=== PATIENT | female | born 1975 | race African-American/Black ===

== ENCOUNTER 2017-07-29 17:26 | Emergency (ER) | payer SELFPAY ==
[2017-07-29 17:39] VITALS: BP 142/67; PULSE 74; RESP 18; TEMP 98; O2SAT 97
--- NOTE | 2017-07-29 18:02 | PD ---
HPI Chief Complaint: Bite or Sting Time Seen by Provider: 17:52 Travel History International Travel<30 days: No Contact w/Intl Traveler<30days: No Traveled to known affect area: No History of Present Illness HPI 42-year-old -Stateless female presents emergency department with multiple bedbug bites all over her body and neck which have occurred over the past week. Patient is here with severe pruritus. She denies fever, chills, or open wounds or draining areas. Patient has not taken any medication for it. She states "it is driving me crazy". She has no significant pain. She has no known drug allergies. [facility] Past Medical History LMP: 07/18/17 Social History Alcohol Use: Yes Tobacco Use: No Substance Use: No Allergies-Medications (Allergen,Severity, Reaction): Coded Allergies: No Known Allergies (Unverified , 07/29/17) Reported Meds & Prescriptions Reported Meds & Active Scripts Active No Active Prescriptions or Reported Medications Review of Systems Except as stated in HPI: all other systems reviewed are Neg General / Constitutional: No: Fever Eyes: No: Visual changes HENT: No: Headaches Cardiovascular: No: Chest Pain or Discomfort Respiratory: No: Shortness of Breath Gastrointestinal: No: Abdominal Pain Genitourinary: No: Dysuria Musculoskeletal: No: Pain Skin: Positive Itching, Positive Lesions, No Rash Neurologic: No: Weakness Psychiatric: No: Depression Endocrine: No: Polydipsia Hematologic/Lymphatic: No: Easy Bruising Physical Exam Narrative GENERAL: Patient is stable but uncomfortable SKIN: Warm and dry. Normal color. Normal turgor. Patient has over 100 obvious insect bites with local erythema and swelling. No signs of cellulitis or abscess are noted. HEAD: Atraumatic. Normocephalic. EYES: Pupils equal and round. No scleral icterus. No injection or drainage. ENT: No nasal bleeding or discharge. Mucous membranes pink and moist. Pharynx is clear. Airways patent. NECK: Trachea midline. Supple nontender. CARDIOVASCULAR: Regular rate and rhythm. RESPIRATORY: No accessory muscle use. Clear to auscultation. Breath sounds equal bilaterally. GASTROINTESTINAL: Abdomen soft, non-tender, nondistended. Hepatic and splenic margins not palpable. MUSCULOSKELETAL: Extremities without clubbing, cyanosis, or edema. No obvious deformities. NEUROLOGICAL: Awake and alert. No obvious cranial nerve deficits. Motor grossly within normal limits. Five out of 5 muscle strength in the arms and legs. Normal speech. PSYCHIATRIC: Appropriate mood and affect; insight and judgment normal. Data Data Last Documented VS Vital Signs Date Time Temp Pulse Resp B/P (MAP) Pulse Ox O2 Delivery O2 Flow Rate FiO2 07/29/17 17:39 98.0 74 18 142/67 (92) 97 MDM Medical Decision Making Medical Screen Exam Complete: Yes Emergency Medical Condition: Yes Differential Diagnosis Bedbug bites. Allergic reaction. Local pruritus. Narrative Course Patient is given 10 mg Decadron IM. Patient is given 40 mg Pepcid p.o. Patient is given 25 mg Benadryl IM. Patient will be continued on prednisone 20 mg twice daily 5 days. Patient continued on ranitidine 150 mg twice daily for 1 week. Patient is to take Benadryl 25 mg every 6 hours as needed itching. Patient is to discontinue sleeping where she was as she is obviously allergic to bedbugs. Patient to follow-up if symptoms do not improve or worsen as needed per Diagnosis Primary Impression: Bedbug bite Qualified Codes: W57.XXXA - Bitten or stung by nonvenomous insect and other nonvenomous arthropods, initial encounter Additional Impression: Allergic reaction to insect bite Referrals: [facility] Patient Instructions: Allergies (ED), General Instructions, Insect Bite or Sting (ED) Additional Instructions: Patient is given 10 mg Decadron IM. Patient is given 40 mg Pepcid p.o. Patient is given 25 mg Benadryl IM. Patient will be continued on prednisone 20 mg twice daily 5 days. Patient continued on ranitidine 150 mg twice daily for 1 week. Patient is to take Benadryl 25 mg every 6 hours as needed itching. Patient is to discontinue sleeping where she was as she is obviously allergic to bedbugs. Patient to follow-up if symptoms do not improve or worsen as needed per Med/Other Pt SpecificInfo: Prescription(s) given Scripts No Active Prescriptions or Reported Meds Disposition: 01 DISCHARGE HOME Condition: Stable Raad Bland Jul 29, 2017 18:02
[2017-07-29] MEDS ORDERED: RANI150T PO (18:11)
[2017-07-29] MEDS ORDERED: PRED20 PO (18:11)
[2017-07-29] MEDS ORDERED: diphenhydrAMINE HCL 50 MG/ML VIAL IM ONE (18:15)
[2017-07-29] MEDS ORDERED: FAMOTIDINE 20 MG TAB PO ONE (18:15)
[2017-07-29] MEDS ORDERED: DEXAMETHASONE SOD PHOS 20 MG/5 ML VIAL IM ONE (18:15)
== END 2017-07-29 19:30 | disposition home or self-care (01) ==
LOC: NEPK 17:26
DX: T78.40XA Allergy, unspecified, initial encounter (principal); W57.XXXA Bitten or stung by nonvenomous insect and other nonvenomous arthropods, initial encounter
CPT/HCPCS: 96372; 99283; J1100; J1200